=== PATIENT | female | born 1955 | race Caucasian/White ===

== ENCOUNTER 2020-08-08 15:50 | Outpatient (CLI) | payer OTHER, SELFPAY ==
--- NOTE | 2020-08-08 15:57 | XR_ITS ---
WS: [id number] Bone mineral density performed on a [employer] IDXA, 08/08/2020 Clinical data: OSTEOPOROSIS COMPARISON STUDY: DEXA scan, 09/04/2013. Findings: The first 4 lumbar vertebral bodies demonstrated the bone mineral density of 0.978 g/cm2 for a young adult T score of -1.7. Measurement of the left hip reveals a bone mineral density of 1.000 g/cm2 with a young adult T score of -0.1. Measurement of the right hip reveals the bone mineral density of 0.979 g/cm2 for young adult T score of -0.2. XR/XR DEXA axial skeleton* [id number] Impression: 1. There is osteopenia of the lumbar spine which has worsened. 2. There is normal bone mineral density of both hips but the bone mineral densi ty has diminished slightly compared to the prior study.
== END 2020-08-08 15:51 | disposition home or self-care (01) ==
LOC: RADWPI 15:55
PROVIDERS: PCP Family Medicine; Visit Provider Family Medicine
DX: M81.0 Age-related osteoporosis without current pathological fracture (principal); M85.88 Other specified disorders of bone density and structure, other site
CPT/HCPCS: 77080

== ENCOUNTER 2020-09-14 12:45 | Outpatient (CLI) | payer OTHER, SELFPAY ==
--- NOTE | 2020-09-14 13:00 | MM_ITS ---
WS: [id number] BILATERAL SCREENING DIGITAL MAMMOGRAM WITH CAD HISTORY: SCREENING COMPARISON: 07/10/2018 Bilateral CC and MLO views submitted. Computer aided detection analyzed. Breast composition: The breasts are heterogeneously dense, which may obscure small masses. No suspici ous masses, microcalcifications or architectural distortion. Benign coarse calcifications RIGHT breas t. MM/[place] [id number] IMPRESSION: BI-RADS: 2-Benign FOLLOW UP: 1 Year Follow-up
== END 2020-09-14 12:46 | disposition home or self-care (01) ==
LOC: RADSHAW 12:49
PROVIDERS: PCP Family Medicine; Visit Provider Family Medicine
DX: Z12.31 Encounter for screening mammogram for malignant neoplasm of breast (principal)
CPT/HCPCS: 77067

== ENCOUNTER 2021-02-06 10:52 | Outpatient (CLI) | payer MEDICARE, SELFPAY ==
--- NOTE | 2021-02-06 11:07 | MR_ITS ---
WS: [id number] MRI LEFT KNEE HISTORY: LEFT KNEE PAIN, pain for 5 to 6 months. Medial pain. COMPARISON: None available. Anterior cruciate ligament: ACL is small caliber with increased T2 signal. No full-thickness tear. Ma jority of the fibers are intact. Posterior cruciate ligament: Intact. Medial collateral ligament: Intact. Posterior lateral corner structures: Intact. Medial menisci: Mild fraying along the superior and inferior surfaces of the posterior horn. Suspicio us for tear at the free edge of the posterior horn. Lateral meniscus: Intact. Normal signal, size and shape. Extensor mechanism: Distal quadriceps tendon and patellar tendons are intact. Fluid and soft tissue: Small suprapatellar joint effusion. No significant soft tissue edema. No Al 's cyst. Osseous and articular structures: Patellofemoral compartment: Superficial defect in the cartilage of the lateral patellar eminence. No marrow edema. Medial compartment: Mild narrowing medial compartment. 5 mm defect in the medial femoral condyle with underlying marrow edema. This defect is near the MCL. Small medial compartment osteophytes at the taniya int line. Lateral compartment: Negative. MR/MR knee LT con* [id number] IMPRESSION: 1. 5 mm osteochondral defect involving the medial femoral condyle. 2. Highly suspicious for tear involving the free edge of the posterior medial meniscus. 3. Small suprapatellar joint effusion. 4. Mild ACL sprain.
== END 2021-02-06 10:53 | disposition home or self-care (01) ==
PROVIDERS: PCP Family Medicine; Visit Provider Family Medicine
DX: M25.562 Pain in left knee (principal); S83.512A Sprain of anterior cruciate ligament of left knee, initial encounter; M25.462 Effusion, left knee; X58.XXXA Exposure to other specified factors, initial encounter
CPT/HCPCS: 73721

== ENCOUNTER 2021-11-16 10:48 | Outpatient (CLI) | payer MEDICARE, SELFPAY ==
--- NOTE | 2021-11-16 11:06 | MM_ITS ---
WS: [id number] BILATERAL SCREENING 3D TOMOSYNTHESIS DIGITAL MAMMOGRAM WITH CAD HISTORY: SCREENING COMPARISON: 09/14/2020 and 07/10/2018 Bilateral CC and MLO views submitted. Computer aided detection analyzed. Breast composition: The breasts are heterogeneously dense, which may obscure small masses. No suspici ous masses, microcalcifications or architectural distortion. Benign calcifications RIGHT breast. MM/[place] [id number] IMPRESSION: BI-RADS: 2-Benign FOLLOW UP: 1 Year Follow-up
== END 2021-11-16 10:49 | disposition home or self-care (01) ==
PROVIDERS: PCP Family Medicine; Visit Provider Family Medicine
DX: Z12.31 Encounter for screening mammogram for malignant neoplasm of breast (principal)
CPT/HCPCS: 77063; 77067

== ENCOUNTER 2024-06-11 12:05 | Outpatient (CLI) | payer MEDICARE, OTHER, SELFPAY ==
--- NOTE | 2024-06-11 12:00 | MM_ITS ---
WS: [id number] Bilateral screening 3D tomosynthesis digital mammogram, 06/11/2024 12:12 PM Clinical Data: SCREENING Comparison: 11/16/2021, 09/14/2020, 07/10/2018, 06/28/2016, 05/27/2014, 02/24/2013, 09/21/2011, 07/12/2010, 04/21/2008, 03/28/2007. Findings: No spiculated masses or clustered calcifications are seen. There are no secondary signs of carcinoma . MM/MM [facility] tomosynthesis [id number] Impression: Negative bilateral mammogram unchanged. Recommend annual screening mammograms. BIRADS: 1 - Negative FOLLOW UP: 1 Year Follow-up DENSITY: The breasts are heterogeneously dense, which may obscure small masses. The CAD radio program checker was used
== END 2024-06-11 12:06 | disposition home or self-care (01) ==
LOC: MOBLMAM 12:10
PROVIDERS: PCP Family Medicine; Visit Provider Family Medicine
DX: Z12.31 Encounter for screening mammogram for malignant neoplasm of breast (principal)
CPT/HCPCS: 77063; 77067

== ENCOUNTER → 2024-07-09 08:51 | Outpatient (BNVA) | payer MEDICARE, OTHER, SELFPAY | PROVIDERS: PCP Family Medicine; Visit Provider Dermatology | DX: L72.0 Epidermal cyst (principal); C44.319 Basal cell carcinoma of skin of other parts of face | CPT/HCPCS: 17311; 99202 ==

== ENCOUNTER 2024-09-10 13:56 | Outpatient (CLI) | payer MEDICARE, OTHER, SELFPAY ==
--- NOTE | 2024-09-10 14:05 | XR_ITS ---
WS: [id number] DEXA (DUAL ENERGY X-RAY ABSORPTIOMETRY) Bone mineral density was performed using a [employer] machine. HISTORY: POSTMENOPAUSAL COMPARISON: 08/08/2020 Lumbar spine BMD (L1-L4): 1.015 g/cm2 T score: -1.4 Z score: -0.8 Total hip BMD: Left: 0.986 g/cm2. T score: -0.2 Z score: 0.5 Right: 0.935 g/cm2. T score: -0.6 Z score: 0.1 10 year probability of a major osteoporotic fracture is 9.3%. Compared to the prior study from 08/08/2020. Lumbar spine bone mineral density has increased by 3.8%. Bilateral hips bone mineral density has decreased by 2.8%. XR/XR DEXA axial skeleton* [id number] IMPRESSION: OSTEOPENIA based upon the WHO classification for females. Significant increase in bone mineral density within the lumbar spine since the prior exam. Significant decrease in bone mineral density within the lumbar spine since the prior exam.
== END 2024-09-10 13:57 | disposition home or self-care (01) ==
LOC: RAD 14:00
PROVIDERS: PCP Family Medicine; Visit Provider Nurse Practitioner Family
DX: Z78.0 Asymptomatic menopausal state (principal); M85.80 Other specified disorders of bone density and structure, unspecified site
CPT/HCPCS: 77080

== ENCOUNTER → 2024-10-22 14:26 | Outpatient (BNVA) | payer MEDICARE, OTHER, SELFPAY | PROVIDERS: PCP Family Medicine; Visit Provider Dermatology | DX: L72.0 Epidermal cyst (principal); L73.8 Other specified follicular disorders; L82.1 Other seborrheic keratosis; D18.01 Hemangioma of skin and subcutaneous tissue; Z08 Encounter for follow-up examination after completed treatment for malignant neoplasm; Z85.828 Personal history of other malignant neoplasm of skin; L82.0 Inflamed seborrheic keratosis; R20.8 Other disturbances of skin sensation; L53.8 Other specified erythematous conditions; L29.89 Other pruritus | CPT/HCPCS: 17110; 99213 ==

== ENCOUNTER → 2025-04-15 11:31 | Outpatient (BNVA) | payer MEDICARE, OTHER, SELFPAY | PROVIDERS: PCP Family Medicine; Visit Provider Dermatology | DX: L72.0 Epidermal cyst (principal); L82.1 Other seborrheic keratosis; L81.4 Other melanin hyperpigmentation; D22.39 Melanocytic nevi of other parts of face; D22.72 Melanocytic nevi of left lower limb, including hip; L81.7 Pigmented purpuric dermatosis; Z08 Encounter for follow-up examination after completed treatment for malignant neoplasm; Z85.828 Personal history of other malignant neoplasm of skin; D48.5 Neoplasm of uncertain behavior of skin | CPT/HCPCS: 11102; 99213 ==